=== PATIENT | female | born 1955 | race Caucasian/White ===

== ENCOUNTER 2017-04-16 05:41 | Inpatient (IN) | payer OTHER ==
[2017-04-16] MEDS ORDERED: CEFAZOLIN 2 GM/50 ML (PMX) 50 ML IVPB (06:15)
[2017-04-16] MEDS: VANCOMYCIN 1 GM (PMX) 250 ML IVPB (06:38)
[2017-04-16] MEDS: LACTATED RINGER'S 1,000 ML IV* (06:39)
[2017-04-16] MEDS ORDERED: MIDAZOLAM 1 MG/ML 2 ML INJ (07:24)
[2017-04-16] MEDS ORDERED: PROPOFOL 20 ML (07:24)
[2017-04-16] MEDS ORDERED: METOCLOPRAMIDE 10 MG INJ (07:24)
[2017-04-16] MEDS ORDERED: ONDANSETRON 4 MG INJ (07:24)
[2017-04-16] MEDS ORDERED: ROPIVACAINE 0.2% 20 ML VIAL (07:25)
[2017-04-16] MEDS ORDERED: morphine SULFATE/PF (10 MG/10 ML) INJ (07:27)
[2017-04-16] MEDS: DEXTROSE 5% IVPB ×2 (08:00→10:00)
[2017-04-16] MEDS: TRANEXAMIC ACID IVPB ×2 (08:00→10:00)
[2017-04-16] MEDS: POLYMYXIN B 500000 UNIT INJ (08:23)
[2017-04-16] MEDS: BACITRACIN 50000 UNITS INJ IRR (08:23)
[2017-04-16] MEDS ORDERED: ONDANSETRON 4 MG INJ IV (09:00)
[2017-04-16] MEDS ORDERED: MEPERIDINE 25 MG INJ IV (09:00)
[2017-04-16] MEDS ORDERED: HYDROmorphONE (0.2 MG/ML) 10ML SYG IV ×3 (09:00)
[2017-04-16] MEDS ORDERED: DIPHENHYDRAMINE 50 MG INJ IV ×2 (09:00→10:30)
[2017-04-16] MEDS: KNEE PAIN COCKTAIL (CEFUROXIME) INJ (09:30)
[2017-04-16] MEDS ORDERED: NALOXONE (0.4 MG/ML) INJ IV (10:30)
[2017-04-16] MEDS ORDERED: BETHANECHOL 25 MG TAB PO (10:30)
[2017-04-16] MEDS ORDERED: BISACODYL 10 MG SUPP PR (10:30)
[2017-04-16] MEDS ORDERED: NA PHOSPHATE/BIPHOS 133 ML ENEMA PR (10:30)
[2017-04-16] MEDS ORDERED: ZOLPIDEM 5 MG TAB PO (10:30)
[2017-04-16] MEDS ORDERED: SENNA/DOCUSATE NA (8.6MG/50MG) TAB PO (10:30)
[2017-04-16] MEDS ORDERED: MAGNESIUM HYDROXIDE 30ML CUP PO (10:30)
[2017-04-16] MEDS: DOCUSATE SODIUM 100 MG CAP PO (10:45)
[2017-04-16] MEDS: ONDANSETRON 4 MG INJ IV ×3 (10:46→22:03)
[2017-04-16] MEDS: CEFAZOLIN 1 GM/50 ML (PMX) 50 ML IVPB ×2 (10:46→18:15)
[2017-04-16] MEDS: ASPIRIN (EC) 325 MG TAB PO ×2 (10:46→22:02)
[2017-04-16] MEDS: SOD CHLORIDE 0.9% 1,000 ML IV ×2 (10:48→22:07)
[2017-04-16] MEDS ORDERED: KNEE PAIN COCKTAIL (CEFUROXIME) INJ (12:00)
[2017-04-16] MEDS ORDERED: DULOXETINE 30 MG CAP DR PO (17:31)
[2017-04-16] MEDS: GABAPENTIN 300 MG CAP PO ×2 (18:14→18:37)
[2017-04-16] MEDS: DULOXETINE 30 MG CAP DR PO (22:02)
[2017-04-17] MEDS: oxyCODONE 5 MG TAB PO ×4 (01:35→18:49)
[2017-04-17] MEDS: CEFAZOLIN 1 GM/50 ML (PMX) 50 ML IVPB (02:04)
[2017-04-17] MEDS: ONDANSETRON 4 MG INJ IV ×3 (04:56→14:07)
[2017-04-17 06:07] LABS: ADD MAN DIFF? NO
[2017-04-17 06:42] LABS: WHITE BLOOD COUNT 6.2 10^3/ul (4.8-10.8)
[2017-04-17 06:42] LABS: ABNORMAL IP MESSAGE 1; BASOPHILS % 0.5 % (0.0-2.0); EOSINOPHILS # 0.1 10^3/ul (0.0-0.5); EOSINOPHILS % 0.8 % (0.0-7.0); HEMATOCRIT 34.7 % (37.0-47.0); HEMOGLOBIN 11.6 g/dl (12.0-16.0); LYMPHOCYTES # 0.5 10^3/ul (0.8-2.9); LYMPHOCYTES % 7.4 % (15.0-51.0); MEAN CORPUSCULAR HEMOGLOBIN 30.3 pg (29.0-33.0); MEAN CORPUSCULAR HGB CONC 33.4 g/dl (32.0-37.0); MEAN CORPUSCULAR VOLUME 90.6 fl (82.0-101.0); MEAN PLATELET VOLUME 10.5 fl (7.4-10.4); MONOCYTE # 0.6 10^3/ul (0.3-0.9); NEUTROPHILS % 80.8 % (39.0-77.0); PLATELET COUNT 204 10^3/UL (140-415); RED BLOOD COUNT 3.83 10^6/ul (4.20-5.40); RED CELL DISTRIBUTION WIDTH 12.9 % (11.5-14.5)
[2017-04-17 06:48] LABS: ANION GAP 12 (8-16); BLOOD UREA NITROGEN 15 mg/dl (7-20); CALCIUM 8.4 mg/dl (8.4-10.2); CARBON DIOXIDE 26 mmol/L (21-31); CHLORIDE 102 mmol/L (97-110); CREATININE 0.78 mg/dl (0.44-1.00); GLUCOSE 112 mg/dl (70-220); POTASSIUM 4.4 mmol/L (3.5-5.1); SODIUM 136 mmol/L (135-144)
[2017-04-17 06:51] LABS: POSITIVE DIFF @See below
[2017-04-17] MEDS: GABAPENTIN 300 MG CAP PO ×3 (07:20→18:09)
[2017-04-17] MEDS ORDERED: PANTOPRAZOLE (EC) 40 MG TAB PO (09:00)
[2017-04-17] MEDS: ASPIRIN (EC) 325 MG TAB PO ×2 (09:00→20:38)
[2017-04-17] MEDS: FERROUS FUMARATE (SR) TAB PO ×2 (09:00→20:38)
[2017-04-17] MEDS ORDERED: CELECOXIB 200 MG CAP PO (09:00)
[2017-04-17] MEDS: DOCUSATE SODIUM 100 MG CAP PO ×2 (09:00→20:38)
[2017-04-17] MEDS ORDERED: GABAPENTIN 100 MG CAP PO (09:00)
[2017-04-17] MEDS ORDERED: DULOXETINE 30 MG CAP DR PO (09:00)
[2017-04-17] MEDS: ACETAMINOPHEN 1000MG/100ML IV 100 ML IVPB ×2 (09:23→20:38)
[2017-04-17] MEDS: METOCLOPRAMIDE 10 MG INJ IV ×2 (10:58→18:08)
[2017-04-17] MEDS: SOD CHLORIDE 0.9% 1,000 ML IV ×2 (11:05→20:13)
[2017-04-17] MEDS ORDERED: ACET/BUTAL/CAFF TAB PO ×2 (14:30)
[2017-04-17] MEDS: FAMOTIDINE 20 MG INJ IV ×2 (14:52→20:38)
[2017-04-17] MEDS: AMLODIPINE 5 MG TAB PO (14:53)
[2017-04-17] MEDS: SOD CHLORIDE 0.9% 500 ML IV (14:55)
[2017-04-17 15:30] LABS: ADD UMIC YES; UR ASCORBIC ACID NEGATIVE (NEGATIVE); UR BILIRUBIN (Dip) NEGATIVE (NEGATIVE); UR BLOOD (Dip) 2+ mg/dL (NEGATIVE); UR CLARITY CLEAR (CLEAR); UR COLOR STRAW (YELLOW); UR GLUCOSE (Dip) NEGATIVE (NEGATIVE); UR KETONES (Dip) NEGATIVE (NEGATIVE); UR LEUKOCYTE ESTERASE (Dip) NEGATIVE Leu/ul (NEGATIVE); UR NITRITE (Dip) NEGATIVE (NEGATIVE); UR RBC 1 /HPF (0-5); UR SPECIFIC GRAVITY (Dip) 1.004 (1.003-1.030); UR SQUAMOUS EPITHELIAL CELL FEW /HPF (FEW); UR TOTAL PROTEIN (Dip) NEGATIVE (NEGATIVE); UR UROBILINOGEN (Dip) NEGATIVE (NEGATIVE); UR WBC 0 /HPF (0-5)
[2017-04-17] MEDS: traMADol 50 MG TAB PO (16:23)
[2017-04-17] MEDS ORDERED: ACETAMINOPHEN (10 MG/ML) IV SYG IV* (20:00)
[2017-04-17] MEDS: DULOXETINE 30 MG CAP DR PO (20:38)
[2017-04-18] MEDS: METOCLOPRAMIDE 10 MG INJ IV ×3 (00:45→12:50)
[2017-04-18] MEDS: oxyCODONE 5 MG TAB PO ×4 (00:45→17:17)
[2017-04-18] MEDS: SOD CHLORIDE 0.9% 1,000 ML IV ×2 (04:04→12:13)
[2017-04-18 05:09] LABS: ADD MAN DIFF? NO
[2017-04-18] MEDS: KETOROLAC 15 MG INJ IV (05:10)
[2017-04-18 05:14] LABS: BASOPHIL # 0.1 10^3/ul (0.0-0.1); BASOPHILS % 1.3 % (0.0-2.0); EOSINOPHILS # 0.1 10^3/ul (0.0-0.5); EOSINOPHILS % 2.4 % (0.0-7.0); HEMATOCRIT 33.9 % (37.0-47.0); HEMOGLOBIN 11.7 g/dl (12.0-16.0); LYMPHOCYTES # 0.7 10^3/ul (0.8-2.9); LYMPHOCYTES % 12.1 % (15.0-51.0); MEAN CORPUSCULAR HGB CONC 34.5 g/dl (32.0-37.0); MEAN CORPUSCULAR VOLUME 86.9 fl (82.0-101.0); MEAN PLATELET VOLUME 9.8 fl (7.4-10.4); MONOCYTE # 0.6 10^3/ul (0.3-0.9); MONOCYTES % 10.2 % (0.0-11.0); NEUTROPHILS % 73.6 % (39.0-77.0); PLATELET COUNT 185 10^3/UL (140-415); RED CELL DISTRIBUTION WIDTH 12.5 % (11.5-14.5)
[2017-04-18 05:14] LABS: WHITE BLOOD COUNT 5.4 10^3/ul (4.8-10.8)
[2017-04-18 05:42] LABS: ANION GAP 11 (8-16); BLOOD UREA NITROGEN 8 mg/dl (7-20); CALCIUM 8.3 mg/dl (8.4-10.2); CARBON DIOXIDE 30 mmol/L (21-31); CHLORIDE 102 mmol/L (97-110); CREATININE 0.72 mg/dl (0.44-1.00); GLUCOSE 113 mg/dl (70-220); POTASSIUM 4.1 mmol/L (3.5-5.1); SODIUM 139 mmol/L (135-144)
[2017-04-18] MEDS ORDERED: PANTOPRAZOLE (EC) 40 MG TAB PO (06:00)
[2017-04-18] MEDS: AMLODIPINE 5 MG TAB PO (09:17)
[2017-04-18] MEDS: ASPIRIN (EC) 325 MG TAB PO (09:18)
[2017-04-18] MEDS: DOCUSATE SODIUM 100 MG CAP PO (09:18)
[2017-04-18] MEDS: FERROUS FUMARATE (SR) TAB PO (09:19)
[2017-04-18] MEDS: GABAPENTIN 300 MG CAP PO ×3 (09:19→17:19)
[2017-04-18] MEDS ORDERED: FAMOTIDINE 20 MG TAB PO (21:00)
== END 2017-04-18 18:18 | DRG 470 ==
LOC: REC 05:41 → MS1 11:40
PROC: 0SRC069 Replacement of Right Knee Joint with Oxidized Zirconium on Polyethylene Synthetic Substitute, Cemented, Open Approach (ICD-10-PCS; principal; 2017-04-16 07:27)
PROC: 8E0YXBZ Computer Assisted Procedure of Lower Extremity (ICD-10-PCS; 2017-04-16 07:27)
DX: M17.11 Unilateral primary osteoarthritis, right knee (principal); I10 Essential (primary) hypertension; R51 Headache; R11.0 Nausea; R42 Dizziness and giddiness; R00.0 Tachycardia, unspecified; R50.9 Fever, unspecified; Z96.652 Presence of left artificial knee joint
CPT/HCPCS: 71045; 73560; 80048; 81001; 85025; 87081; 87086; 97110; 97116; 97163; 97530